=== PATIENT | male | born 1980 | race African-American/Black ===

== ENCOUNTER 2018-05-13 13:45 | Emergency (ER) | payer SELFPAY ==
[~2018-05-13] VITALS: Ht 182.9 cm; Wt 72.6 kg
[2018-05-13 14:49] VITALS: BP 139/88
[2018-05-13] MEDS: LIDOCAINE WITH 8.4% SOD BICARB 3 ML DISP.SYRIN. INJ ONE (15:00)
[2018-05-13] MEDS ORDERED: CEPH-264 PO (15:19)
--- NOTE | 2018-05-13 15:19 | PHYS DOC ---
Past Medical History Past Medical History: No Pertinent History Past Surgical History: No Surgical History Alcohol Use: None Drug Use: None Adult General Chief Complaint Chief Complaint: ABSCESS HPI HPI Patient is a 37 year old male who presents with an abscess to the left cheek. The patient thinks that it started as an infected hair. He states that it has been fluctuating in size since it began approximately one year ago. He states that recently he became painful and enlarged. He thought that it was going to open up at home he cannot get it to drain. He denies fever, nausea or vomiting. Review of Systems Review of Systems Constitutional: Denies fever or chills [] Eyes: Denies change in visual acuity, redness, or eye pain [] HENT: Denies nasal congestion or sore throat [] Respiratory: Denies cough or shortness of breath [] Cardiovascular: No additional information not addressed in HPI [] GI: Denies abdominal pain, nausea, vomiting, bloody stools or diarrhea [] : Denies dysuria or hematuria [] Musculoskeletal: Denies back pain or joint pain [] Integument: See history of present illness Neurologic: Denies headache, focal weakness or sensory changes [] Endocrine: Denies polyuria or polydipsia [] All other systems were reviewed and found to be within normal limits, except as documented in this note. Current Medications Current Medications Current Medications Medications (Trade) Dose Ordered Sig/See Start Time Stop Time Status Last Admin Dose Admin Lidocaine/Sodium Bicarbonate (Buffered Lidocaine 1%) 3 ml 1X ONCE 05/13/18 15:00 05/13/18 15:01 DC 05/13/18 15:00 3 ML Allergies Allergies Allergies Coded Allergies Type Severity Reaction Last Updated Verified No Known Drug Allergies 05/13/18 No Physical Exam Physical Exam Constitutional: Well developed, well nourished, no acute distress, non-toxic appearance. [] Cardiovascular:Heart rate regular rhythm, no murmur [] Lungs & Thorax: Bilateral breath sounds clear to auscultation [] Abdomen: Bowel sounds normal, soft, no tenderness, no masses, no pulsatile masses. [] Skin: Grape-sized lesion to the left cheek that is indurated with an area of fluctuance Neurologic: Alert and oriented X 3, normal motor function, normal sensory function, no focal deficits noted. [] Psychologic: Affect normal, judgement normal, mood normal. [] Current Patient Data Vital Signs Vital Signs Date Time Temp Pulse Resp B/P (MAP) Pulse Ox O2 Delivery O2 Flow Rate FiO2 05/13/18 14:49 98.7 63 16 139/88 (105) 100 Room Air 98.7 EKG EKG [] Radiology/Procedures Radiology/Procedures []Abscess Incision and Drainage with irrigation by me: Location: left cheek Anesthesia: Local 1% Lidocaine Technique: Irrigated. Disrupted loculations w/ instrumentation Packing: None Complications: Neurovascularly intact post procedure 48 hour wound check. Scar minimization instructions given. Course & Med Decision Making Course & Med Decision Making Pertinent Labs and Imaging studies reviewed. (See chart for details) []The patient tolerated the procedure well. Following I&D the lesion was completely flat. The patient has been instructed to follow-up with his primary care provider for recheck in 3 days or return to the emergency department if worsening. He is in agreement with this plan. He has been placed on Keflex as a prophylactic antibiotic. Dragon Disclaimer Dragon Disclaimer This electronic medical record was generated, in whole or in part, using a voice recognition dictation system. Departure Departure Impression: Primary Impression: Abscess Disposition: 01 HOME, SELF-CARE Condition: STABLE Referrals: NO PCP (PCP) Patient Instructions: Abscess Additional Instructions: Take the antibiotic as prescribed. Follow-up with your primary care provider for a recheck in 3 days if not improving or return to the emergency department if worsening. Scripts Cephalexin (KEFLEX) 500 Mg Capsule 1 CAP PO TID, #30 CAP Prov: IWONA LACEY APRN 05/13/18 IWONA LACEY APRN May 13, 2018 15:19
== END 2018-05-13 15:44 | disposition home or self-care (01) ==
LOC: ER 13:45
DX: L02.01 Cutaneous abscess of face (principal)
CPT/HCPCS: 10060; 99283